=== PATIENT | female | born 1970 | race Caucasian/White ===

== ENCOUNTER 2016-08-20 10:07 | Day surgery (SDC) | payer BC, MEDICARE ==
[~2016-08-20 10:07] MED LIST: ONDANSETRON HCL/PF 2 MG/ML VIAL IV PRN; RINGER'S SOLUTION,LACTATED 1,000 ML IV PRN; ceFAZolin SODIUM 1 GM VIAL IV PRN
--- OUTSIDE RECORDS SUMMARY | 2016-08-20 10:11 | XMS REPORT | Continuity of Care Document ---
:1970 Author Organization [facility] ([facility]) Address [address] [place] [address] Phone [phone] Care Team Providers Name Role Phone Benita Seay Primary Care Provider [phone] Source Comments This disclosure is being made pursuant to the Care Everywhere program, applicable federal and state laws, and may not contain all informaitonavailable regarding this patient.[facility] ([facility]) Active Allergies and Adverse Reactions Allergen Noted Date Severity Reactions Comments Codeine Urticaria (Hives),Pruritus,Nausea & Vomiting Sumatriptan Upper Airway Edema throat swelled shut Current Medications Prescription Sig. Disp. Refills Start Date End Date Status Cholecalciferol, Take 5,000 mg by Active Vitamin D3, (VITAMIN mouth every week. D) 5,000 unit Tab Not taking cyanocobalamin Not taking Active (VITAMIN B-12) 1000 mcg/mL injection GLUCOSAM Not taking Active HCL/MSM/CHONDRO [place] A ([id number] ROITIN) 750-375-400 mg Tab P-EPHED Take by mouth. Not Active HCL/FEXOFENADINE HCL taking (LAYLA-D 12 HOUR PO) CALCIUM CARBONATE Not taking Active (CALCIUM 600 PO) docusate (COLACE) 100 Take 1 Cap by mouth 60 Cap 1 03/12/2011 Active mg capsule 2 times daily. Indications: Constipation TENS Units (TENS 502) Use as directed per 1 Each 0 04/21/2011 Active [facility]. Indications: Limb Pain lidocaine (LIDODERM) 5 apply 2 Patches on 60 Patch 6 11/21/2012 Active % patch the skin daily. Apply for 12 hours and remove for 12 hours, then repeat cycle. Indications: neuropathic pain promethazine 12.5 mg Take 1 Tab by mouth 180 Tab 2 11/21/2012 Active tablet every 4 hours as needed. Indications: PAIN TREATMENT ADJUNCT celecoxib (CeleBREX) Take 1 Cap by mouth 60 Cap 2 11/21/2012 Active 200 mg capsule 2 times daily. Indications: PAIN NABUMETONE 750 mg Take 750 mg by 02/13/2014 Active tablet mouth 2 times daily. DICYCLOMINE 20 mg 02/06/2014 Active tablet OXCARBAZEPINE 150 mg Take 1.25 Tabs by 120 Tab 1 02/22/2014 Active tablet mouth 2 times daily. Indications: neuropathic pain TENS UNIT ELECTRODES Use as directed 15 Each 11 02/22/2014 Active (TENS UNITS with TENS unit per ELECTRODES) 2X2 " pads physical therapy. Indications: LIMB PAIN tiZANidine 4 mg tablet Take 1 Tab by mouth 90 Tab 1 02/22/2014 Active 3 times daily. Indications: MUSCLE SPASM Active Problems Problem Noted Date Knee pain, chronic 02/26/2014 Morbid obesity 02/22/2014 Chronic low back pain 11/24/2012 Right knee pain 03/08/2011 Left leg pain 12/12/2009 Routine general medical examination at a health care facility 03/08/2006 Screening for diabetes mellitus 03/08/2006 Screening for lipoid disorders 03/08/2006 Obesity, unspecified 07/22/2004 Unspecified sinusitis (chronic) 04/14/2004 Abdominal pain, unspecified site 02/05/2004 Social History Tobacco Use Types Packs/Day Years Used Date Never Smoker Alcohol Use Drinks/Week oz/Week Comments No Last Filed Vital Signs Vital Sign Reading Time Taken Blood Pressure 129/70 02/22/2014 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 Pulse 89 02/22/2014 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 Temperature 36.3 C (97.3 F) 02/22/2014 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 Respiratory Rate 16 06/18/2011 3:15 PM CDT Height 1.575 m (5' 2") 02/22/2014 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
[2016-08-20] MEDS ORDERED: RINGER'S SOLUTION,LACTATED 1,000 ML IV ONE ×2 (12:30→14:15)
[2016-08-20] MEDS ORDERED: ceFAZolin SODIUM 1 GM VIAL IV ONE ×2 (13:00)
--- NOTE | 2016-08-20 14:37 | OR ---
Operative Report - Dictated Report Narrative: Date: 08/20/2016 Physician: Abner Domínguez M.D. Casting Operator Helper: Deon Soto PA-C Preoperative diagnosis: Left Shoulder recurrent rotator cuff tear Postoperative diagnosis: Left Shoulder recurrent rotator cuff tear, biceps tendinopathy, failure of deep implants Procedure: Left shoulder arthroscopy with repeat rotator cuff repair, biceps tenotomy, removal of deep implants Anesthesia: General plus regional Complications: None Estimated blood loss: Minimal Specimens: Deep implants for disposal Retained implants: [employer] 4.5 mm peek helicoil anchor 2 footprint anchor 1 Drains: None Indications: Mrs. Mann Is a 45 year-old female who has been followed in my clinic with complaints of shoulder pain consistent recurrent rotator cuff tear. Physical exam and diagnostic imaging were consistent with his complaints and concern for recurrent tear of prior rotator cuff repair. Conservative measures have failed including, but not limited to, passage of time, activity modification, medications, physical therapy/home exercise program, or injections. The risks, benefits, and alternatives were discussed in clinic. The risks being , bleeding, infection, blood clots, nerve, tendon, ligament, blood vessel injury, persistent pain, arthrosis, stiffness, need for prolonged therapy, need for additional procedures, and persistent symptoms. Consent was obtained in the clinic. Procedure: After marking the correct extremity in the preoperative holding area, a timeout was performed in the operating room. IV antibiotics consisting of Ancef were administered prior to the procedure. A general followed by regional anesthetic was induced by the nurse applied exercise physiologist. This was in the supine position, then the patient was transitioned to a beachchair position with all bony prominences well-padded, head in neutral, the nonoperative arm well supported, and the legs padded with SCDs in place. The operative shoulder was then prepped and draped in a standard sterile fashion. Preoperatively the shoulder had full passive range of motion, and and no gross instability. After marking out the bony landmarks, saline was infused into the joint through a posterior lateral portal site. A jah incision was made, and the blunt trocar and cannula was introduced into the shoulder joint. An accessory portal was placed in the rotator cuff interval using a spinal needle for guidance. Upon initial evaluation, the biceps tendon showed was partially torn as it inserted on the labrum as well as at the extra-articular portion of the tendon. The middle glenohumeral ligament was unremarkable. Subscapularis tendon was unremarkable. The glenoid showed no arthropathy. The humeral head articular surface showed no arthrosis. The anterior labrum was frayed but intact. The superior labrum was frayed but intact. The pouch was unremarkable. The posterior labrum was unremarkable. The supraspinatus tendon was torn from the area just behind the biceps to the anterior portion of the infraspinatus. The infraspinatus tendon was intact. Utilizing arthroscopic scissors biceps was transected as it inserted on the labrum and allowed to retract. Based on the arthroscopic findings, as well as exam and radiographic findings, it was elected to proceed with a mini open rotator cuff repair. A longitudinal incision centered over the previously identified rotator cuff tear utilizing her prior incision and was made just off the edge of the acromion. This was approximately 7 centimeters in length. The deltoid fascia was split sharply in line with its fibers, and blunt dissection was carried through the deltoid muscle. Any remaining subacromial bursal tissue was debrided in order to expose the underlying rotator cuff tear. The rotator cuff tear appeared to be U shaped orientation. The tuberosity was debrided of its soft tissues producing a bleeding bed for the tendon to be secured to. 2 4.5 mm PEEK helicoil anchor was placed just off the articular surface of the humeral head. A series of horizontal mattress sutures were placed at the prepared edge of the rotator cuff. This allowed for a tension-free return of the tendon to the greater tuberosity. The sutures were then passed longitudinally into 1 4.5 mm PEEK footprint anchor. This was performed and a suture bridge technique. This gave good overall compression to the rotator cuff at the insertion site. A footprint anchor which had been utilized for the prior repair was identified in the subacromial space and removed as well as her prior suture. The shoulder was placed through a range of motion and had no lift off of the repair site as well as no crepitance or signs of impingement. Full passive range of motion was able to be obtained. Once it was felt that the rotator cuff was adequately repaired, the wounds were thoroughly irrigated. 0 Vicryl was utilized in order to repair the deltoid fascia. 3-0 Vicryl was placed in the subcutaneous tissue. The rotator cuff incision as well as the portal sites were closed with interrupted nylon. Dressings consisting of Xeroform, 4 x 4, ABD, soft roll, and tape were applied. All sponge, needle, blade, and instrument counts were correct prior to closing the wounds. The patient was awoken and transferred to the postanesthesia care unit in stable condition.
[2016-08-20 17:58] VITALS: BP 122/82
== END 2016-08-20 10:08 | disposition home or self-care (01) ==
LOC: AMB 10:07
PROVIDERS: ATTEND Orthopaedic Surgery
PROC: 0RNK4ZZ Release Left Shoulder Joint, Percutaneous Endoscopic Approach (ICD-10-PCS; 2016-08-20)
PROC: 0LQ20ZZ Repair Left Shoulder Tendon, Open Approach (ICD-10-PCS; principal; 2016-08-20 13:15)
DX: M75.102 Unspecified rotator cuff tear or rupture of left shoulder, not specified as traumatic (principal); M75.22 Bicipital tendinitis, left shoulder; T84.89XA Other specified complication of internal orthopedic prosthetic devices, implants and grafts, initial encounter; I10 Essential (primary) hypertension; Z68.43 Body mass index [BMI] 50.0-59.9, adult